=== PATIENT | female | born 1985 | race Caucasian/White ===

== ENCOUNTER 2023-06-02 14:02 | Emergency (ER) | payer SELFPAY ==
[2023-06-02 14:14] VITALS: BP 147/87; PULSE 97; RESP 16; TEMP 36.8; O2SAT 99
--- NOTE | 2023-06-02 14:28 | ED.URI ---
HPI - URI/Sore Throat General Chief Complaint: Ear Stated Complaint: Cough/Ear Problem Time Seen by Provider: 06/02/23 14:04 Source: patient Mode of arrival: ambulatory Limitations: no limitations History of Present Illness HPI Narrative: Mallory is a 37-year-old female patient presenting to clinic today with complaints of cough and nasal congestion x2 weeks and ear pain that just started a few days ago. She denies any fever chills MD elicited complaint: cough, nasal congestion and other (Ear pain) Related Data Home Medications Medication Instructions Recorded Confirmed No Home Medications 06/02/23 06/02/23 Allergies Allergy/AdvReac Type Severity Reaction Status Date / Time No Known Allergies Allergy Verified 06/02/23 14:29 Review of Systems Review of Systems: Pertinent positives per HPI. Patient denies any fever, chills, rash, headache, visual changes, dizziness, shortness of breath, chest pain, palpitations, nausea, vomiting, diarrhea, constipation, abdominal pain, or any urinary issues. PMFSH Comments At the time of my signature, I reviewed and agree with the nursing past medical, surgical, social, and family history. There is no relevant family history pertinent to the patient complaint. Exam Narrative: General: Well-developed, well nourished, in no apparent distress Head: Normocephalic, atraumatic Eyes: Pupils equally round and reactive to light bilaterally, EOM intact, sclera and conjunctive clear, no discharge, lids normal Ears: Right tMs intact and clear, left TM bulging, red, ear canals clear, no drainage, grossly hearing normal. Nose: Nares patent, green nasal discharge, moderate inflammation, maxillary and frontal sinus tenderness. Mouth: Oral pharynx without lesions or masses, good dentition, MMM. Postnasal drip Neck: Supple, trachea midline, no enlargement of anterior or posterior cervical nodes, no thyroid masses or goiter palpable. Cardio: Regular rate and rhythm, s1 and s2 normal, no murmur appreciated. Resp: Clear to auscultation bilaterally, no rhonchi, rales, wheezing or rubs Course Course Emergency Course: Portions of this record may have been created with voice recognition software. Level of Care: Express Care Visit Vital Signs Vital signs: Vital Signs Temperature 36.8 C 06/02/23 14:14 Pulse Rate 97 06/02/23 14:14 Respiratory Rate 16 06/02/23 14:14 Blood Pressure 147/87 H 06/02/23 14:14 Pulse Oximetry 99 06/02/23 14:14 Oxygen Delivery Room Air 06/02/23 14:14 Temperature 36.8 C 06/02/23 14:14 Pulse Rate 97 06/02/23 14:14 Respiratory Rate 16 06/02/23 14:14 Blood Pressure 147/87 H 06/02/23 14:14 Pulse Oximetry 99 06/02/23 14:14 Oxygen Delivery Room Air 06/02/23 14:14 Vital signs reviewed MDM - URI/Sore Throat MDM Narrative Medical decision making narrative: At the time of visit patient is resting comfortably on exam table. I suspect patient has acute bacterial rhinosinusitis and left ear infection. Prescription for Augmentin and prednisone was sent to the pharmacy and supportive measures were discussed with the patient she voiced understanding discharge instructions and agrees to treatment plan. Differential Diagnosis Differential diagnosis: Likely upper respiratory infection, otitis media, sinusitis, viral infection, bronchitis, influenza, pharyngitis and other (COVID) Discharge Plan Discharge Clinical Impression: Acute bacterial rhinosinusitis, Acute left otitis media Patient Disposition: Home, Self-Care Condition: Stable Instructions: Antibiotic Form, Ear Infection (ED), Rhinosinusitis (ED) Additional Instructions: Take prescription medications only as prescribed-Augmentin and prednisone Increase fluids and stay well hydrated Tylenol/motrin for pain/fever Flonase and OTC antihistamines as directed Vicks vapor rub to open sinuses Sinus rinses for congestion Cepacol spray, cough drops, thr
== END 2023-06-02 14:37 | disposition home or self-care (01) ==
PROVIDERS: Emergency Provider Nurse Practitioner Family
DX: J01.90 Acute sinusitis, unspecified (principal); H66.92 Otitis media, unspecified, left ear
CPT/HCPCS: 99213; G0463